=== PATIENT | female | born 1955 | race Caucasian/White ===

== ENCOUNTER → 2017-04-03 | Outpatient (CLI) | payer OTHER ==
--- NOTE | 2017-04-03 13:03 | DIAGNOSTIC IMAGING REPORT ---
LEFT KNEE 2 VIEWS HISTORY: SPRAIN OF UNSPECIFIED SITE ON LEFT KNEE COMPARISON: None. FINDINGS: There is no fracture or dislocation. No significant knee effusion. Mild tricompartmental osteoarthritis. No radiopaque foreign bodies. IMPRESSION: Mild osteoarthritis within the left knee. No fractures. Electronically signed by: Nikunj Nathan M.D. 04/03/2017 1:01 PM Dictated Date/Time: 04/03/2017 1:01 PM
== END | disposition home or self-care (01) ==
LOC: C.RAD1850 11:42
PROVIDERS: ATTEND Nurse Practitioner Family
DX: S83.92XA Sprain of unspecified site of left knee, initial encounter (principal); M17.12 Unilateral primary osteoarthritis, left knee; X50.1XXA Overexertion from prolonged static or awkward postures, initial encounter

== ENCOUNTER 2020-07-12 16:33 | Observation (INO) ==
[2020-07-12] MEDS ORDERED: SODIUM CHLORIDE 0.9% 1000ML 1,000 ML IV STA (16:58)
[2020-07-12] MEDS ORDERED: ONDANSETRON INJ 2 MG/ML 2 ML VIAL IV STA (17:09)
[2020-07-12] MEDS ORDERED: MoRPHine SULFATE 4 MG/ML 1 ML CARP\\VIAL IV STA (17:09)
--- NOTE | 2020-07-12 17:19 | Emergency Department Note ---
Impression & Plan Acute epigastric pain, Nausea, Acute thoracic back pain, Biliary colic ED Provider Note Provider: Heriberto Figueroa MD DATE OF SERVICE: 07/12/2020 CHIEF COMPLAINT: Chest and back pain/upper abdominal pain HISTORY OF PRESENT ILLNESS: Patient is a 65-year-old female history of hyperlipidemia but not currently medication present here today onset this morning she woke up with a little bit of lower mid chest discomfort straight radiating through to her mid thoracic back. States she ate breakfast and tried moving different positions and took some aspirin but it did not change things. Patient hospital bed around in a bandlike fashion to the upper abdomen. Reports a little bit of nausea and does not really have much of an appetite and did not eat lunch. Denies any dizziness or headache. Denies fever, chills, cough, or sore throat. Denies shortness of breath. Patient states she had a similar episode about a month ago lasted an hour or so she took some aspirin and took a nap and when she woke up it was gone. No other incidents. Denies any other radiation of the pain to the lower abdomen arms jaw neck or into the legs. Denies any leg swelling. Denies any trauma. Denies significant cardiac history. Patient states her blood pressure is usually well controlled. Describes a 10 out of 10 pain currently. Tight pressure sensation reported. REVIEW OF SYSTEMS: A total of 10 review of systems was obtained and negative except as stated above in the HPI. PAST MEDICAL HISTORY: As noted above and prior and appendectomy MEDICATIONS: Vitamin D SOCIAL HISTORY: Non-smoker, lives at home PHYSICAL EXAM: GENERAL: alert and oriented in no acute distress on stretcher Head: normocephalic and atraumatic EYES: No injection, discharge or icterus. NECK: Trachea midline. LUNGS: Airway patent. No retractions. Breath sounds clear with good air entry bilaterally. HEART: Regular rate and rhythm. No chest wall tenderness ABDOMEN: Soft some slight epigastric to right upper quadrant tenderness. Negative Melton's sign. No peritonitis. No lower abdominal tenderness. BACK: No midline tenderness, No bilateral flank tenderness. SKIN: Acyanotic, warm, dry, without rashes EXTREMITIES: Without swelling, tenderness or deformity NEUROLOGICAL: No focal deficits. No aphasia. No facial droop or slurred speech. Normal strength and tone in the extremities. Sensation to gross touch normal. Ambulatory. EK bpm normal sinus rhythm. No PVC or PAC. No acute ST segment elevation or depression. Normal QTC. CONTINUOUS CARDIAC MONITORING: was ordered and showed a heart rate of 60s and 70s bpm in normal sinus rhythm PDMP was checked without noted issue. Patient's laboratory studies and imaging reviewed. Differential includes cardiac, pulmonary, infections, diverticulitis, UTI, obstruction, mesenteric ischemia, aortic pathology, inflammatory bowel disease, renal colic, PUD, pancreatitis, biliary pathology, hernia, volvulus, constipation, as well as other pathologies. IMPRESSION/MEDICAL DECISION MAKING: Patient presents with onset this morning of mid thoracic back and slight lower chest discomfort. Denies exertional component. Some no radiation of the upper abdomen. Little bit of nausea. Lower suspicion for PE but question possible dissection or biliary pathology. Pancreatitis is high in the list. EKG was complete as well as troponin look for possible cardiac insult. Patient significantly hypertensive here. Unsure how much of this is related to pain versus other cause. Given some morphine, IV fluids, and Zofran here initially to help with symptom control. Patient is not guarding or having peritonitis. Negative Melton sign. No lower abdominal pain and prior appendectomy. EKG here is unimpressive for acute ischemic changes. No evidence of leukocytosis or anemia. No significant electrolyte abnormalities signs of renal dysfunction. No evidence of transaminitis. No significant lipase elevation indicative of pancreatitis. Bilirubin not elevated. Troponin is undetectable and again symptoms been ongoing for several hours today. CT of the chest and abdomen pelvis per radiology no evidence acute aortic dissection. No evidence of PE. No evidence of airspace consolidation or pleural effusion. 3.3 cm left ovarian cyst noted as well as an indeterminate 1.7 mm right upper retroperitoneal nodule questioning from the liver. Patient made aware of both in recommend she follow-up in the outpatient setting for further evaluation of both of these. CT scan shows a distended gallbladder with some mild stranding around the neck. On reevaluation the patient blood pressure is much improved. Nausea is resolved. Describes a 3 out of 10 pain in the mid back and epigastrium to right upper quadrant range in the abdomen. Having minimal to no significant abdominal tenderness at this point. Again no evidence of biliary obstruction based on labs the question biliary colic here. Did reach out to the surgery team to discuss the case. The general surgery physician speech and language assistant evaluated in ER discussed the case with Dr. Ibanez. Patient and decision-making with them will be brought in the hospital further observation and plan for cholecystectomy in the morning. DIAGNOSIS: Biliary colic, epigastric pain, nausea, acute thoracic back pain DISPOSITION: Admitted to the general surgery team. Past Med/Surg History Medical History Hyperlipidemia no meds Stress incontinence Vaginal polyp Surgical History H/O tubal ligation History of appendectomy History of colonoscopy Hx of section x2 S/P wisdom tooth extraction HX Family History Father Lung cancer Lung disease Sister Ovarian cancer dx in 50's Other No family history of adverse response to anesthesia Denies family history of Breast cancer Colorectal cancer Uterine cancer Social History Smoking Status: Never smoker Second Hand Exposure: Yes (as a child); Hx Alcohol Use: Yes Alcohol type: beer and wine Hx Substance Use: No Preferred Language: French Communication Ability: Effective Corporate Quality Assurance Manager Required: No Beliefs That Will Affect Care: None Current Living Situation: Alone Feels Safe at Home: Yes Assistive Devices: Contacts Allergies Allergies Allergy/AdvReac Type Severity Reaction Status Date / Time No Known Allergies Allergy Verified 07/12/20 16:53 Home Meds Home Medications Medication Instructions Recorded Confirmed aspirin 650 mg PO Q6H PRN 07/12/20 07/12/20 ibuprofen 400 mg PO Q6H PRN 07/12/20 07/12/20 Results & Data (ED) Vital Signs Vital Signs - 24 hr 07/12/20 16:45 07/12/20 17:34 Temperature 36.6 C Temperature Source Temporal Artery Scan Pulse Rate 70 Pulse Rhythm Regular Respiratory Rate 18 Respiratory Effort / Characteristics Non-Labored Spontaneous Respiratory Depth Normal Respiratory Pattern Regular Blood Pressure 174/100 H Blood Pressure Mean 124 Pulse Oximetry 99 99 Oxygen Delivery Method Room Air Room Air Sepsis Recent Fever Within 48 Hours No Sepsis New/Unexplained Change in Mental Status No Sepsis Action Taken by Nursing No Action Required Laboratory Data Result diagrams: 07/12/20 17:23 07/12/20 17:23 Lab Results 05/30/21 05/30/21 05/30/21 Range/Units 17:23 17:23 17:23 WBC 7.04 (4.8-10.8) K/uL RBC 4.85 (4.2-5.4) M/uL Hgb 15.2 (12.0-16.0) g/dL POC Hgb (12.0-16.0) g/dl Hct 45.0 (37-47) % POC Hct (37-47) % MCV 92.8 (80-100) fL MCH 31.3 (25-34) pg MCHC 33.8 (32-36) g/dL RDW Std Deviation 45.9 (36.4-46.3) fL RDW Coeff of Modesta 13.6 (11.5-14.5) % Plt Count 243 (130-400) K/uL MPV 10.6 H (7.4-10.4) fL Immature Gran % (Auto) 0.1 % Neut % (Auto) 52.5 % Lymph % (Auto) 31.7 % Ritchie % (Auto) 10.7 % Eos % (Auto) 4.7 % Baso % (Auto) 0.3 % Neut # (Auto) 3.70 (1.4-6.5) K/uL Lymph # (Auto) 2.23 (1.2-3.4) K/uL Ritchie # (Auto) 0.75 H (0.11-0.59) K/uL Eos # (Auto) 0.33 (0-0.5) K/uL Baso # (Auto) 0.02 (0-0.2) K/uL Immature Gran # (Auto) 0.01 (0.00-0.02) K/uL PT 10.3 (9.0-12.0) Seconds INR 1.0 (0.9-1.1) POC Sodium (135-144) mmol/L Sodium 142 (136-145) mmol/L POC Potassium (3.3-5.0) mmol/L Potassium 4.1 (3.5-5.1) mmol/L POC Chloride (101-112) mmol/L Chloride 108 H (98-107) mmol/L Carbon Dioxide 29 (21-32) mmol/L POC Total CO2 (24-31) mmol/L Anion Gap 5.0 (3-11) POC Anion Gap (16-25) mmol/L POC BUN (7-18) mg/dl BUN 17 (7-18) mg/dl Creatinine 0.99 (0.6-1.2) mg/dl POC Creatinine (0.6-1.3) mg/dl Est Cr Clr Drug Dosing 69.4 ml/min Est GFR ( Amer) 69.3 ml/min Est GFR (Non-Af Amer) 59.8 ml/min BUN/Creatinine Ratio 17.1 (10-20) Glucose 94 (70-99) mg/dl POC Glucose (other) (70-99) mg/dl Calcium 8.6 (8.5-10.1) mg/dl POC Ioniz Calcium Charbel (1.12-1.32) mmol/l Total Bilirubin 0.5 (0.2-1) mg/dl AST 14 L (15-37) U/L ALT 32 (12-78) U/L Alkaline Phosphatase 64 (45-117) U/L Troponin I < 0.015 (0-0.045) ng/ml Total Protein 6.7 (6.4-8.2) gm/dl Albumin 3.6 (3.4-5.0) gm/dl Globulin 3.1 (2.5-4.0) gm/dl Albumin/Globulin Ratio 1.2 (0.9-2) Lipase 181 (73-393) U/L COVID-19 Eval Order SARS-CoV-2 (PCR) (Negative) 07/12/20 07/12/20 07/12/20 Range/Units 17:25 17:25 17:51 WBC (4.8-10.8) K/uL RBC (4.2-5.4) M/uL Hgb (12.0-16.0) g/dL POC Hgb 14.3 (12.0-16.0) g/dl Hct (37-47) % POC Hct 42 (37-47) % MCV (80-100) fL MCH (25-34) pg MCHC (32-36) g/dL RDW Std Deviation (36.4-46.3) fL RDW Coeff of Modesta (11.5-14.5) % Plt Count (130-400) K/uL MPV (7.4-10.4) fL Immature Gran % (Auto) % Neut % (Auto) % Lymph % (Auto) % Ritchie % (Auto) % Eos % (Auto) % Baso % (Auto) % Neut # (Auto) (1.4-6.5) K/uL Lymph # (Auto) (1.2-3.4) K/uL Ritchie # (Auto) (0.11-0.59) K/uL Eos # (Auto) (0-0.5) K/uL Baso # (Auto) (0-0.2) K/uL Immature Gran # (Auto) (0.00-0.02) K/uL PT (9.0-12.0) Seconds INR (0.9-1.1) POC Sodium 141 (135-144) mmol/L Sodium (136-145) mmol/L POC Potassium 4.1 (3.3-5.0) mmol/L Potassium (3.5-5.1) mmol/L POC Chloride 104 (101-112) mmol/L Chloride (98-107) mmol/L Carbon Dioxide (21-32) mmol/L POC Total CO2 28 (24-31) mmol/L Anion Gap (3-11) POC Anion Gap 14.0 L (16-25) mmol/L POC BUN 21 H (7-18) mg/dl BUN (7-18) mg/dl Creatinine (0.6-1.2) mg/dl POC Creatinine 1.1 (0.6-1.3) mg/dl Est Cr Clr Drug Dosing ml/min Est GFR ( Amer) ml/min Est GFR (Non-Af Amer) ml/min BUN/Creatinine Ratio (10-20) Glucose (70-99) mg/dl POC Glucose (other) 96 (70-99) mg/dl Calcium (8.5-10.1) mg/dl POC Ioniz Calcium Charbel 1.20 (1.12-1.32) mmol/l Total Bilirubin (0.2-1) mg/dl AST (15-37) U/L ALT (12-78) U/L Alkaline Phosphatase (45-117) U/L Troponin I (0-0.045) ng/ml Total Protein (6.4-8.2) gm/dl Albumin (3.4-5.0) gm/dl Globulin (2.5-4.0) gm/dl Albumin/Globulin Ratio (0.9-2) Lipase (73-393) U/L COVID-19 Eval Order Covid19 at [facility] SARS-CoV-2 (PCR) NEGATIVE (Negative) Administered Medications Discontinued Medications Sodium Chloride (Nss 1000ml) 1,000 mls @ 999 mls/hr IV .Q1H1M STA Stop: 07/12/20 17:58 Last Infusion: 07/12/20 18:23 Dose: 0 mls/hr Documented by: [id number] Admin: 07/12/20 17:20 Dose: 999 mls/hr Documented by: [id number] Ioversol (Optiray 350 500ml) 118 ml IV ONCE ONE Stop: 07/12/20 18:24 Last Admin: 07/12/20 18:23 Dose: 118 ml Documented by: [id number] Morphine Sulfate (Morphine Sulfate 4 Mg/Ml 1 Ml Carp\Vial) 4 mg IV NOW STA Stop: 07/12/20 17:10 Last Admin: 07/12/20 17:37 Dose: 4 mg Documented by: [id number] Ondansetron HCl (Ondansetron Inj 2 Mg/Ml 2 Ml Vial) 4 mg IV NOW STA Stop: 07/12/20 17:10 Last Admin: 07/12/20 17:37 Dose: 4 mg Documented by: [id number] Imaging Data Radiologist's Impression: Chest CTA 07/12/20 16:58 CT ANGIOGRAM OF THE CHEST COMBO; CT ANGIOGRAM OF THE ABDOMEN AND PELVIS CLINICAL HISTORY: Atypical chest pain radiating to the back. Epigastric abdominal pain. COMPARISON STUDY: Abdominal ultrasound dated 06/12/2015. TECHNIQUE: Unenhanced CT scan of the chest is performed. Subsequently, following the IV administration of 118 cc of Optiray 350, CT angiogram of the chest, abdomen, and pelvis was performed from the thoracic inlet to the proximal femora. Images are reviewed in the axial, sagittal, and coronal planes. 3-D MIPS images are created and assessed. IV contrast was administered without com plication. A dose lowering technique was utilized adhering to the principles of ALARA. CT DOSE: 2773.17 mGy.cm FINDINGS: CHEST: Thyroid: Imaged portions of the thyroid gland are normal in size and attenuation. Thoracic aorta: No intramural hematoma is seen on the unenhanced series. The thoracic aorta is normal in course and caliber. The aortic arch demonstrates 4-vessel variant anatomy. No dissection is seen. The arch vessels are widely patent. Pulmonary vasculature: The pulmonary trunk is normal in caliber. There are no filling defects within the main, lobar, or segmental pulmonary branches to indicate pulmonary embolus. Heart: The heart is normal in size and without pericardial effusion. There are coronary artery calcifications. Lungs and pleural spaces: The lungs and pleural spaces are clear noting bibasilar scarring/atelectasis. The trachea and central airways are patent. Mediastinum: There is no mediastinal lymphadenopathy. Karlee: Clear. Axillae: There is no axillary lymphadenopathy. Bony thorax: The skeletal structures are osteopenic. No destructive bony lesions are identified. ABDOMEN AND PELVIS: Liver: The contrast-enhanced liver is normal in size, contour, and attenuation. There is no intrahepatic biliary ductal dilatation. The main portal veins appear patent. Gallbladder: The gallbladder is distended. Mild stranding is seen adjacent to the gallbladder neck. No surrounding fluid is identified. Spleen: Normal in size and attenuation noting heterogeneous arterial phase enhancement. Pancreas: Unremarkable. Adrenal glands: Unremarkable. Kidneys: The contrast enhanced kidneys are normal in size and without hydronephrosis. The kidneys enhance symmetrically. Abdominal aorta and iliac arteries: The abdominal aorta is normal in course and caliber. No dissection is seen. The iliac arteries are widely patent bilaterally. Major branches of the abdominal aorta: The celiac trunk, superior mesenteric, and inferior mesenteric arteries are widely patent. Hepatic arterial anatomy is conventional. The splenic artery is patent.Single bilateral renal arteries are widely patent. Bowel: There is mild colonic diverticulosis without CT evidence of acute diverticulitis. No bowel obstruction is seen. The appendix is not identified and reported surgically absent. Peritoneum/retroperitoneum: There is no intraperitoneal free air or abdominal ascites. There is an indeterminant 1.7 cm soft tissue nodule identified in the right superior retroperitoneal space below the diaphragm and adjacent to the liver seen on image #136. This appears to arise from the liver on the coronal reformats and may represent an exophytic nodule of hepatic tissue. Lymphadenopathy: None. Pelvic viscera: The bladder and uterus are normal as visualized. The ovaries appear enlarged for age, with a 3.3 cm cystic structure identified in the left ovary as seen on image #326. Skeletal structures: The skeletal structures are osteopenic. There is mild lumbosacral spondylosis. Sclerotic change is noted in the pubic symphysis. No lytic or blastic lesions are seen. IMPRESSION: 1. The gallbladder is distended and there is mild stranding adjacent to the gallbladder neck. Correlate clinically and with laboratory studies for evidence of acute cholecystitis. Consider right upper quadrant ultrasound for further assessment. 2. Unremarkable CT angiogram of the thoracic and abdominal aorta. 3. There is no evidence of pulmonary embolus in the main, lobar, or segmental pulmonary arteries.. 4. Unremarkable CT angiogram of the major branches of the abdominal aorta. 5. There is no airspace consolidation or pleural effusion. 6. The ovaries are enlarged bilaterally, with a 3.3 cm simple appearing cystic structure identified in the left ovary. Nonemergent pelvic ultrasound and outpatient gynecology follow-up are recommended. 7. There is an indeterminant 1.7 cm nodule identified in the right upper retroperitoneal space which may arise from the right lobe of liver. This is pathologically indeterminant, and a 6 month follow-up contrast-enhanced abdominal CT scan is recommended for reassessment. 8. Colonic diverticulosis without CT evidence of acute diverticulitis. 9. Additional findings as above. ACT 112: Positive. There are findings on this exam that require communication between the performing entity and the patient following Patient Test Result Information Act ([place] Act 112) guidelines. Electronically signed by: Elier Gonzales M.D. 07/12/2020 6:49 PM Abdomen/Pelvis CTA 07/12/20 17:08 CT ANGIOGRAM OF THE CHEST COMBO; CT ANGIOGRAM OF THE ABDOMEN AND PELVIS CLINICAL HISTORY: Atypical chest pain radiating to the back. Epigastric abdo carlos pain. COMPARISON STUDY: Abdominal ultrasound dated 06/12/2015. TECHNIQUE: Unenhanced CT scan of the chest is performed. Subsequently, following the IV administration of 118 cc of Optiray 350, CT angiogram of the chest, abdomen, and pelvis was performed from the thoracic inlet to the proximal femora. Images are reviewed in the axial, sagittal, and coronal planes. 3-D MIPS images are created and assessed. IV contrast was administered without complication. A dose lowering technique was utilized adhering to the principles of ALARA. CT DOSE: 2773.17 mGy.cm FINDINGS: CHEST: Thyroid: Imaged portions of the thyroid gland are normal in size and attenuation. Thoracic aorta: No intramural hematoma is seen on the unenhanced series. The thoracic aorta is normal in course and caliber. The aortic arch demonstrates 4- vessel variant anatomy. No dissection is seen. The arch vessels are widely patent. Pulmonary vasculature: The pulmonary trunk is normal in caliber. There are no filling defects within the main, lobar, or segmental pulmonary branches to indicate pulmonary embolus. Heart: The heart is normal in size and without pericardial effusion. There are coronary artery calcifications. Lungs and pleural spaces: The lungs and pleural spaces are clear noting bibasilar scarring/atelectasis. The trachea and central airways are patent. Mediastinum: There is no mediastinal lymphadenopathy. Karlee: Clear. Axillae: There is no axillary lymphadenopathy. Bony thorax: The skeletal structures are osteopenic. No destructive bony lesions are identified. ABDOMEN AND PELVIS: Liver: The contrast-enhanced liver is normal in size, contour, and attenuation. There is no intrahepatic biliary ductal dilatation. The main portal veins appear patent. Gallbladder: The gallbladder is distended. Mild stranding is seen adjacent to the gallbladder neck. No surrounding fluid is identified. Spleen: Normal in size and attenuation noting heterogeneous arterial phase enhancement. Pancreas: Unremarkable. Adrenal glands: Unremarkable. Kidneys: The contrast enhanced kidneys are normal in size and without hydronephrosis. The kidneys enhance symmetrically. Abdominal aorta and iliac arteries: The abdominal aorta is normal in course and caliber. No dissection is seen. The iliac arteries are widely patent bilaterally. Major branches of the abdominal aorta: The celiac trunk, superior mesenteric, and inferior mesenteric arteries are widely patent. Hepatic arterial anatomy is conventional. The splenic artery is patent.Single bilateral renal arteries are widely patent. Bowel: There is mild colonic diverticulosis without CT evidence of acute diverticulitis. No bowel obstruction is seen. The appendix is not identified and reported surgically absent. Peritoneum/retroperitoneum: There is no intraperitoneal free air or abdominal ascites. There is an indeterminant 1.7 cm soft tissue nodule identified in the right superior retroperitoneal space below the diaphragm and adjacent to the liver seen on image #136. This appears to arise from the liver on the coronal reformats and may represent an exophytic nodule of hepatic tissue. Lymphadenopathy: None. Pelvic viscera: The bladder and uterus are normal as visualized. The ovaries appear enlarged for age, with a 3.3 cm cystic structure identified in the left ovary as seen on image #326. Skeletal structures: The skeletal structures are osteopenic. There is mild lumbosacral spondylosis. Sclerotic change is noted in the pubic symphysis. No lytic or blastic lesions are seen. IMPRESSION: 1. The gallbladder is distended and there is mild stranding adjacent to the gallbladder neck. Correlate clinically and with laboratory studies for evidence of acute cholecystitis. Consider right upper quadrant ultrasound for further assessment. 2. Unremarkable CT angiogram of the thoracic and abdominal aorta. 3. There is no evidence of pulmonary embolus in the main, lobar, or segmental pulmonary arteries.. 4. Unremarkable CT angiogram of the major branches of the abdominal aorta. 5. There is no airspace consolidation or pleural effusion. 6. The ovaries are enlarged bilaterally, with a 3.3 cm simple appearing cystic structure identified in the left ovary. Nonemergent pelvic ultrasound and outpatient gynecology follow-up are recommended. 7. There is an indeterminant 1.7 cm nodule identified in the right upper retroperitoneal space which may arise from the right lobe of liver. This is pathologically indeterminant, and a 6 month follow-up contrast-enhanced abdominal CT scan is recommended for reassessment. 8. Colonic diverticulosis without CT evidence of acute diverticulitis. 9. Additional findings as above. ACT 112: Positive. There are findings on this exam that require communication between the performing entity and the patient following Patient Test Result Information Act ([place] Act 112) guidelines. Electronically signed by: Elier Gonzales M.D. 07/12/2020 6:49 PM Discharge Plan Visit Data Chief Complaint: Back Injury/Pain Stated Complaint: [facility] Provider: Heriberto Figueroa Discharge Problem: Acute epigastric pain, Nausea, Acute thoracic back pain, Biliary colic Patient Disposition: Being Evaluated by Surgeon Condition: Good Forms Stand Alone Forms: [employer] Prescriptions Prescriptions: No Action aspirin 325 mg Tablet 650 mg PO Q6H PRN (Reason: Pain) RF: 0 ibuprofen 200 mg Tablet 400 mg PO Q6H PRN (Reason: Pain) RF: 0 Referrals Referrals: Keila Rm CRNP [Primary Care Provider] -
[2020-07-12 17:49] LABS: Basophils # (auto) 0.02 K/uL (0-0.2); Basophils % (auto) 0.3 %; Eosinophils # (auto) 0.33 K/uL (0-0.5); Eosinophils % (auto) 4.7 %; Hemoglobin 15.2 g/dL (12.0-16.0); Immature Granulocytes # (auto) 0.01 K/uL (0.00-0.02); Immature Granulocytes % (auto) 0.1 %; Lymphocytes # (auto) 2.23 K/uL (1.2-3.4); Lymphocytes % (auto) 31.7 %; Mean Corpuscular Hemoglobin 31.3 pg (25-34); Mean Corpuscular Hgb Conc 33.8 g/dL (32-36); Mean Corpuscular Volume 92.8 fL (80-100); Mean Platelet Volume 10.6 fL (7.4-10.4); Monocytes # (auto) 0.75 K/uL (0.11-0.59); Monocytes % (auto) 10.7 %; Neutrophils % (auto) 52.5 %; Platelet Count 243 K/uL (130-400); RDW Coefficient of Variation 13.6 % (11.5-14.5); RDW Standard Deviation 45.9 fL (36.4-46.3); Red Blood Count 4.85 M/uL (4.2-5.4); White Blood Count 7.04 K/uL (4.8-10.8)
[2020-07-12 18:03] LABS: Prothrombin Time 10.3 Seconds (9.0-12.0)
[2020-07-12 18:04] LABS: iSTAT Creatinine 1.1 mg/dl (0.6-1.3); iSTAT Hemoglobin 14.3 g/dl (12.0-16.0); iSTAT Ionized Calcium 1.2 mmol/l (1.12-1.32); iSTAT Potassium 4.1 mmol/L (3.3-5.0)
[2020-07-12 18:07] LABS: Alanine Aminotransferase 32 U/L (12-78); Albumin Level 3.6 gm/dl (3.4-5.0); Aspartate Aminotransferase 14 U/L (15-37); BUN Creatinine Ratio 17.1 (10-20); Blood Urea Nitrogen 17 mg/dl (7-18); Calcium 8.6 mg/dl (8.5-10.1); Carbon Dioxide 29 mmol/L (21-32); Chloride 108 mmol/L (98-107); Creatinine Clr Calc Pharmacy 69.4 ml/min; Est GFR (African American) 69.3 ml/min; Est GFR (Non-African American) 59.8 ml/min; Glucose 94 mg/dl (70-99); Lipase 181 U/L (73-393); Potassium 4.1 mmol/L (3.5-5.1); Sodium 142 mmol/L (136-145)
[2020-07-12 18:13] LABS: Albumin Globulin Ratio 1.2 (0.9-2); Alkaline Phosphatase 64 U/L (45-117); Bilirubin,Total 0.5 mg/dl (0.2-1); Globulin 3.1 gm/dl (2.5-4.0); Total Protein 6.7 gm/dl (6.4-8.2); Troponin I < 0.015 ng/ml (0-0.045)
[2020-07-12] MEDS ORDERED: OPTIRAY 350 500ml IV ONE (18:23)
--- NOTE | 2020-07-12 18:51 | CT Scan Report ---
CT ANGIOGRAM OF THE CHEST COMBO; CT ANGIOGRAM OF THE ABDOMEN AND PELVIS CLINICAL HISTORY: Atypical chest pain radiating to the back. Epigastric abdominal pain. COMPARISON STUDY: Abdominal ultrasound dated 06/12/2015. TECHNIQUE: Unenhanced CT scan of the chest is performed. Subsequently, following the IV administratio n of 118 cc of Optiray 350, CT angiogram of the chest, abdomen, and pelvis was performed from the tho racic inlet to the proximal femora. Images are reviewed in the axial, sagittal, and coronal planes. 3 -D MIPS images are created and assessed. IV contrast was administered without complication. A dose lo wering technique was utilized adhering to the principles of ALARA. CT DOSE: 2773.17 mGy.cm FINDINGS: CHEST: Thyroid: Imaged portions of the thyroid gland are normal in size and attenuation. Thoracic aorta: No intramural hematoma is seen on the unenhanced series. The thoracic aorta is normal in course and caliber. The aortic arch demonstrates 4-vessel variant anatomy. No dissection is seen. The arch vessels are widely patent. Pulmonary vasculature: The pulmonary trunk is normal in caliber. There are no filling defects within the main, lobar, or segmental pulmonary branches to indicate pulmonary embolus. Heart: The heart is normal in size and without pericardial effusion. There are coronary artery calcif ications. Lungs and pleural spaces: The lungs and pleural spaces are clear noting bibasilar scarring/atelectasi s. The trachea and central airways are patent. Mediastinum: There is no mediastinal lymphadenopathy. Karlee: Clear. Axillae: There is no axillary lymphadenopathy. Bony thorax: The skeletal structures are osteopenic. No destructive bony lesions are identified. ABDOMEN AND PELVIS: Liver: The contrast-enhanced liver is normal in size, contour, and attenuation. There is no intrahepa tic biliary ductal dilatation. The main portal veins appear patent. Gallbladder: The gallbladder is distended. Mild stranding is seen adjacent to the gallbladder neck. N o surrounding fluid is identified. Spleen: Normal in size and attenuation noting heterogeneous arterial phase enhancement. Pancreas: Unremarkable. Adrenal glands: Unremarkable. Kidneys: The contrast enhanced kidneys are normal in size and without hydronephrosis. The kidneys enh ance symmetrically. Abdominal aorta and iliac arteries: The abdominal aorta is normal in course and caliber. No dissectio n is seen. The iliac arteries are widely patent bilaterally. Major branches of the abdominal aorta: The celiac trunk, superior mesenteric, and inferior mesenteric arteries are widely patent. Hepatic arterial anatomy is conventional. The splenic artery is patent.S franca bilateral renal arteries are widely patent. Bowel: There is mild colonic diverticulosis without CT evidence of acute diverticulitis. No bowel obs truction is seen. The appendix is not identified and reported surgically absent. Peritoneum/retroperitoneum: There is no intraperitoneal free air or abdominal ascites. There is an in determinant 1.7 cm soft tissue nodule identified in the right superior retroperitoneal space below th e diaphragm and adjacent to the liver seen on image #136. This appears to arise from the liver on the coronal reformats and may represent an exophytic nodule of hepatic tissue. Lymphadenopathy: None. Pelvic viscera: The bladder and uterus are normal as visualized. The ovaries appear enlarged for age, with a 3.3 cm cystic structure identified in the left ovary as seen on image #326. Skeletal structures: The skeletal structures are osteopenic. There is mild lumbosacral spondylosis. S clerotic change is noted in the pubic symphysis. No lytic or blastic lesions are seen. IMPRESSION: 1. The gallbladder is distended and there is mild stranding adjacent to the gallbladder neck. Correla te clinically and with laboratory studies for evidence of acute cholecystitis. Consider right upper q uadrant ultrasound for further assessment. 2. Unremarkable CT angiogram of the thoracic and abdominal aorta. 3. There is no evidence of pulmonary embolus in the main, lobar, or segmental pulmonary arteries.. 4. Unremarkable CT angiogram of the major branches of the abdominal aorta. 5. There is no airspace consolidation or pleural effusion. 6. The ovaries are enlarged bilaterally, with a 3.3 cm simple appearing cystic structure identified i n the left ovary. Nonemergent pelvic ultrasound and outpatient gynecology follow-up are recommended. 7. There is an indeterminant 1.7 cm nodule identified in the right upper retroperitoneal space which may arise from the right lobe of liver. This is pathologically indeterminant, and a 6 month follow-up contrast-enhanced abdominal CT scan is recommended for reassessment. 8. Colonic diverticulosis without CT evidence of acute diverticulitis. 9. Additional findings as above. ACT 112: Positive. There are findings on this exam that require communication between the performing entity and the patient following Patient Test Result Information Act ([place] Act 112) guidelines. Electronically signed by: Elier Gonzales M.D. 07/12/2020 6:49 PM
--- NOTE | 2020-07-12 20:10 | History & Physical Report ---
Date of Service July 12, 2020 Assessment & Plan (1) Biliary colic: Patient will be admitted to the hospital and we'll proceed as follows: Provide analgesics Provide antiemetics Provide antibiotics. As the patient has no allergies I'll use cefoxitin We will allow the patient clear liquids until midnight at which time she'll be n.p.o. except for medicines. We'll provide IV fluid for gentle hydration We'll repeat labs in the morning I discussed with the patient that we can proceed with cholecystectomy tomorrow and she is willing to proceed in this manner. I have discussed the procedure outlining the risks, benefits, and alternatives. Informed consent has been obtained and is placed on the chart. Patient will meet Dr. Ibanez prior to undergoing surgery. As surgery is planned for tomorrow use SCDs for DVT prevention we avoid chemical means until after surgery History of Present Illness Chief Complaint: Abdominal pain Primary Care Provider: MARY KAY Fonseca This is a 65-year-old female who presented to [facility] emergency department secondary to back pain. Patient states that she woke up this morning and had pain in her mid to low back region in the center of her back. He says initially it felt like an ache but got worse throughout the day. Patient initially thought that this was a muscle ache and she reports having similar issues approximately 1 month ago. In addition to this back pain the patient does admit to some pain in her upper abdomen in the epigastric area. She has no nausea or vomiting. She denies any fevers or diarrhea. Patient denies any postprandial pain. She denies any radiation of the pain to her shoulder. She said that the pain was improved with medicines administered in the emergency department and she denies any provocative factors. Concerning prior surgeries on her abdomen the patient notes that she has had 2 C-sections. She does add that during her second she also underwent a tubal ligation and appendectomy. In the emergency department patient did have labs where her CBC revealed her white blood cell count, hemoglobin, hematocrit, and platelet count are all within normal range. Chemistry profile revealed that her sodium, potassium, BUN, and creatinine were all within normal range. There were no elevation of her LFTs and her lipase was normal. A Covid test has been checked and is noted to be negative. Patient did have a CT scan of her chest abdomen and pelvis that showed no evidence of pulmonary emboli. Patient was noted to have a distended gallbl adder with some mild stranding adjacent to the gallbladder neck. I did question patient about her functional capacity and she notes that she walks nearly 1 mile every day and can do so without any chest pain or shortness of breath. She lives in a two-story home and says that she can negotiate steps without any chest pain or shortness of breath. He is a lifetime non-smoker and does not have any family history of coronary artery disease. In the emergency department she was resting comfortably in bed and her pain had improved with medicines that were administered. She is in no distress. Allergies Allergy/AdvReac Type Severity Reaction Status Date / Time No Known Allergies Allergy Verified 07/12/20 16:53 Home Medications Medication Instructions Recorded Confirmed Type aspirin 650 mg PO Q6H PRN 07/12/20 07/12/20 History ibuprofen 400 mg PO Q6H PRN 07/12/20 07/12/20 History Past Med/Surg History Medical History Hyperlipidemia no meds Stress incontinence Vaginal polyp Surgical History H/O tubal ligation History of appendectomy History of colonoscopy Hx of section x2 S/P wisdom tooth extraction HX Family History Father Lung cancer Lung disease Sister Ovarian cancer dx in 50's Other No family history of adverse response to anesthesia Denies family history of Breast cancer Colorectal cancer Uterine cancer Social History Smoking Status: Never smoker Second Hand Exposure: Yes (as a child); Hx Alcohol Use: Yes Alcohol type: beer and wine Hx Substance Use: No Preferred Language: [place] Communication Ability: Effective Sheriffs Required: No Beliefs That Will Affect Care: None Current Living Situation: Alone Other Information That Helps Us Care for You: No Feels Safe at Home: Yes Safety Concerns: Feels Safe At This Time Assistive Devices: None Review of Systems Constitutional: no fever and no chills Eyes: no diplopia Ear, Nose, Mouth, Throat: no ear pain Respiratory: no cough and no dyspnea Cardiovascular: no chest pain Gastrointestinal: + abdominal pain; no heartburn, no nausea, no vomiting, no constipation and no diarrhea/loose stools Genitourinary: no dysuria Musculoskeletal: + back pain Integumentary: no rash Neurologic: no localized weakness Physical Exam Constitutional: well developed and well nourished; no acute distress Eyes: no conjunctival abnormality ENMT: Ears: no hearing impairment Neck: trachea midline Respiratory: normal respiratory effort, lungs clear to auscultation Cardiovascular: Rate/Rhythm: regular rate and regular rhythm Gastrointestinal (Abdomen): Abdomen is rotund and soft. Bowel sounds are present. There is no rebound tenderness or guarding. With light palpation there is no pain. With very deep and forceful palpation patient did have some discomfort in the right upper quadrant and epigastric areas. Musculoskeletal: No calf tenderness. Straight leg raise did not elicit any back pain bilaterally. Skin: no rashes, warm and dry Neurologic: moves all extremities Psychiatric: A+Ox3, euthymic affect Results & Data Results & Data ([facility]) Vital Signs (Past 12 Hours) Vital Signs Temp Pulse Resp BP Pulse Ox 07/12/20 17:34 99 07/12/20 16:45 36.6 C 70 18 174/100 H 99 PG Care Time/CCT Total # of Minutes Spent Total Time Spent with Patient: Total time spent is greater than 50% in coordination of care (as documented) at patient's floor/unit and/or counseling patient: Coding Level of Care Code 34872 OBS Care - Level 3 Diagnoses Biliary colic K80.50
--- NOTE | 2020-07-12 21:06 | Hospitalist Consultation ---
Date of Consultation July 12, 2020 Assessment & Plan (1) Biliary colic: Patient is a very pleasant 65 year old female with PMHx of HLD who presented for worsening back pain and found on CT to have a distended gallbladder with mild stranding of the GB neck concerning for cholecystitis. Patient is planned for cholecystectomy tomorrow and medicine was consulted for hypertension management. Acute Cholecystitis -Analgesic and antiemetics per surgery -Agree with antibiotics, continue Cefoxitin -NPO after midnight -Continue IVF while NPO -Plan for surgical intervention for cholecystectomy in AM Hypertension -Initial consult for hypertension due to patient's BP of 174/100 -On repeat while in the room patients BP had reduced to 146/80 -No known history of hypertension outside of one other time prior to her vaginal polyp removal surgery -Suspect secondary to pain and increased sympathomimetics during acute infection -With HR in the 70's would hold on PRN beta armando pushes at this time -Will add Hydralazine pushes PRN for pressures >160 systolic Ovarian Cyst -Roughly 3.3 cm simple appearing cystic structure identified in the L ovary -Follow up outpatient OBGYN for nonemergent pelvic ultrasound Nodule of R upper retroperitoneal space -1.7cm nodule identified in the R upper retroperitoneal space which may arise from the right lobe of the liver -Pathologically indeterminant - 6 month follow up contrast-enhanced abdominal CT scan recommended for reassessment Dispo: Med/Surg FEN: NPO at midnight DVT: SCDs per surgery Code: Full, discussed with patient Thank you for allowing us to assist in the care of this patient. Medicine will continue to follow in the AM. (2) Acute epigastric pain: (3) Acute thoracic back pain: Supervising Physician Co-Signing Physician Notes Attending addendum: I have physically seen this patient, have supervised the medical residents activities, and agree with the H&P unless as otherwise noted. Assessment and Plan: Acute cholecystitis- Continue cefoxitin IV Continue IV fluids Admitted to surgery for cholecystectomy in a.m. Elevated blood pressure/no history of hypertension- Likely secondary to pain Hydralazine 10 mg IV every 6 hours as needed systolic blood pressure greater than 160 Ovarian cyst- We will need follow-up with outpatient BUSINESS OPERATIONS MANAGER Remaining orders and notations as noted History of Present Illness Reason for Consultation: Hypertension Requesting Physician: Dr. Ibanez History of Present Illness Patient is a very pleasant 65 year old female with PMHx of HLD who presented for worsening back pain and found on CT to have a distended gallbladder with mild stranding of the GB neck concerning for cholecystitis. Patient is planned for cholecystectomy tomorrow and medicine was consulted for hypertension management. Patient notes that she has had on and off back pain for at least the past month. She also notes occasional upper abdomen and epigastric pain, worse on the R side for this time. She states that she has been working on her diet, but yesterday ate a fairly unhealthy dinner of ice cream, pretzels, and cheese and found her pain to worsen today. She notes that she does walk nearly 1 mile daily and that she does so without needing to stop to catch her breath and does not develop chest pain. She is able to climb a flight of steps without issue in her own home. Currently she denies any fever, chills, SOB, chest pain, abdominal pain. Med Hx: HLD Surg Hx: Appendectomy, section x2 Soc Hx: No tobacco or illicit drug use. Has 3-4 glasses of wine/month Allergies Allergy/AdvReac Type Severity Reaction Status Date / Time No Known Allergies Allergy Verified 07/12/20 16:53 Home Medications Medication Instructions Recorded Confirmed Type aspirin 650 mg PO Q6H PRN 07/12/20 07/12/20 History ibuprofen 400 mg PO Q6H PRN 07/12/20 07/12/20 History Patient History Medical History (Updated 07/13/20 @ 12:24 by William Esparza MD) Hyperlipidemia no meds Obesity Stress incontinence Vaginal polyp Surgical History H/O tubal ligation History of appendectomy History of colonoscopy Hx of section x2 S/P wisdom tooth extraction HX Family History Father Lung cancer Lung disease Sister Ovarian cancer dx in 50's Other No family history of adverse response to anesthesia Denies family history of Breast cancer Colorectal cancer Uterine cancer Social History Smoking Status: Never smoker Second Hand Exposure: Yes (as a child); Hx Alcohol Use: Yes Alcohol type: beer and wine Hx Substance Use: No Preferred Language: Romanian Communication Ability: Effective 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 Beliefs That Will Affect Care: None Current Living Situation: Alone Other Information That Helps Us Care for You: No Feels Safe at Home: Yes Safety Concerns: Feels Safe At This Time Assistive Devices: None Review of Systems Review of Systems: All systems reviewed & are unremarkable except as noted in Subjective Physical Exam Constitutional: well developed and well nourished; no acute distress Eyes: no conjunctival abnormality ENMT: Ears: no hearing impairment Neck: trachea midline Respiratory: normal respiratory effort, lungs clear to auscultation Cardiovascular: Rate/Rhythm: regular rate and regular rhythm Heart Sounds: no gallop, no murmur and no cardiac rub Gastrointestinal (Abdomen): Inspection/Auscultation: abdomen normal to ins pection and normal bowel sounds; abdomen not distended Percussion/Palpation: + abdomen tender (to deep palpation of the RUQ ) and abdomen soft; no guarding Musculoskeletal: no cyanosis or clubbing, extremities motor strength 5/5 No calf tenderness. Straight leg raise did not elicit any back pain bilaterally. Skin: no rashes, warm and dry Neurologic: PERRL, EOMI, accommodation nl, no face palsy, no dysarthria moves all extremities Psychiatric: A+Ox3, euthymic affect Results & Data Results & Data ([facility]) Vital Signs (Past 12 Hours) Vital Signs Temp Pulse Resp BP Pulse Ox 07/12/20 17:34 99 07/12/20 16:45 36.6 C 70 18 174/100 H 99 Resident Activity Tracking Resident Involvement: Resident Care Provided Care Provided: Adult Hospital Medicine (1) Acute thoracic back pain Back pain laterality: midline Qualified Code(s): M54.6 - Pain in thoracic spine
[2020-07-12] MEDS ORDERED: hydrALAZINE HCL 20 MG/ML VIAL IV PRN (22:00)
[2020-07-12] MEDS ORDERED: MoRPHine SULFATE 2 MG/ML CARP IV PRN (22:00)
[2020-07-12] MEDS ORDERED: ONDANSETRON INJ 2 MG/ML 2 ML VIAL IV PRN (22:00)
[2020-07-12] MEDS ORDERED: ACETAMINOPHEN 1,000 MG/100 ML VIAL IV PRN (22:00)
[2020-07-12] MEDS: LACTATED RINGER'S 1,000 ML IV SCH (22:17)
[2020-07-12] MEDS: cefOXitin 2,000 MG in DEXTROSE 5% 50 ML IV SCH (22:17)
[2020-07-13] MEDS: cefOXitin 2,000 MG in DEXTROSE 5% 50 ML IV SCH ×4 (04:07→23:07)
--- NOTE | 2020-07-13 05:24 | Surgery Progress Note ---
Date of Service July 13, 2020 Assessment & Plan (1) Biliary colic: Patient has been admitted on the surgical service with care to continue as follows: Continue analgesics Continue antiemetics Continue antibiotics in the form of cefoxitin Continue IV fluid for hydration Repeat labs are ordered for this morning which are currently pending Continue n.p.o. status as cholecystectomy is tentatively planned for this morning Continue SCDs for DVT prevention. We will avoid chemical means due to anticipated surgery. Dr. Ibanez-patient with biliary colic-she has severe distention of her gallbladder and likely has sludge in her gallbladder Plan is for laparoscopic cholecystectomy later this morning-patient understands and agrees to plan Admission and Anticipated Discharge Date Admission Date: July 12, 2020 Subjective Patient notes a restful night. She denies any worsening abdominal pain. She has not had any recurrence of her back pain. She denies any fevers, shakes, chills. She denies any nausea or vomiting. Physical Exam Gastrointestinal (Abdomen): Abdomen is rotund with positive bowel sounds. There is no rebound tenderness or guarding or pain with palpation. Results & Data ([facility]) Vital Signs (Past 12 Hours) Vital Signs Temp Pulse Pulse Resp BP Pulse Ox 07/12/20 22:00 36.6 C 71 16 129/79 95 07/12/20 21:51 70 18 136/86 99 07/12/20 17:34 99 PG Care Time/CCT Total # of Minutes Spent Total Time Spent with Patient: Total time spent is greater than 50% in coordination of care (as documented) at patient's floor/unit and/or counseling patient: Coding Level of Care Code 99054 Subseq Hosp Care Lvl 1 Diagnoses Biliary colic K80.50
[2020-07-13 05:40] LABS: Basophils # (auto) 0.01 K/uL (0-0.2); Basophils % (auto) 0.1 %; Eosinophils # (auto) 0.25 K/uL (0-0.5); Eosinophils % (auto) 3.6 %; Hematocrit (blood only) 44.6 % (37-47); Hemoglobin 14.7 g/dL (12.0-16.0); Immature Granulocytes # (auto) 0.01 K/uL (0.00-0.02); Immature Granulocytes % (auto) 0.1 %; Lymphocytes # (auto) 2.77 K/uL (1.2-3.4); Lymphocytes % (auto) 39.3 %; Mean Corpuscular Hemoglobin 30.7 pg (25-34); Mean Corpuscular Volume 93.1 fL (80-100); Mean Platelet Volume 10.6 fL (7.4-10.4); Monocytes # (auto) 0.55 K/uL (0.11-0.59); Monocytes % (auto) 7.8 %; Neutrophils # (auto) 3.45 K/uL (1.4-6.5); Neutrophils % (auto) 49.1 %; Platelet Count 240 K/uL (130-400); RDW Coefficient of Variation 13.6 % (11.5-14.5); RDW Standard Deviation 46.4 fL (36.4-46.3); Red Blood Count 4.79 M/uL (4.2-5.4); White Blood Count 7.04 K/uL (4.8-10.8)
[2020-07-13 06:03] LABS: Albumin Globulin Ratio 1.1 (0.9-2); Albumin Level 3.3 gm/dl (3.4-5.0); BUN Creatinine Ratio 7.3 (10-20); Bilirubin,Total 0.5 mg/dl (0.2-1); Calcium 8.4 mg/dl (8.5-10.1); Creatinine Clr Calc Pharmacy 46.8 ml/min; Est GFR (Non-African American) 37.1 ml/min; Globulin 2.9 gm/dl (2.5-4.0); Potassium 3.5 mmol/L (3.5-5.1); Total Protein 6.2 gm/dl (6.4-8.2)
--- NOTE | 2020-07-13 09:27 | Hospitalist Consultation ---
Date of Consultation July 13, 2020 Assessment & Plan (1) Biliary colic: Patient is a very pleasant 65 year old female with PMHx of HLD who presented for worsening back pain and found on CT to have a distended gallbladder with mild stranding of the GB neck concerning for cholecystitis. Patient is planned for cholecystectomy tomorrow and medicine was consulted for hypertension management. Acute Cholecystitis -Analgesic and antiemetics per surgery -Continue abx per surgery Hypertension Initial consult for hypertension due to patient's BP of 174/100, On repeat while in the room patients BP had reduced to 146/80. No known history of hypertension outside of one other time prior to her vaginal polyp removal surgery. Suspect secondary to pain and increased sympathomimetics during acute infection ith HR in the 70's would hold on PRN beta armando pushes at this time -hydralazine pushes PRN for pressures >180 systolic Ovarian Cyst -Roughly 3.3 cm simple appearing cystic structure identified in the L ovary -Follow up outpatient OBGYN for nonemergent pelvic ultrasound Nodule of R upper retroperitoneal space -1.7cm nodule identified in the R upper retroperitoneal space which may arise from the right lobe of the liver -Pathologically indeterminant - 6 month follow up contrast-enhanced abdominal CT scan recommended for reassessment Dispo: Med/Surg FEN: NPO at midnight DVT: SCDs per surgery Code: Full, discussed with patient Thank you for allowing us to assist in the care of this patient. Medicine will continue to follow along. (2) Acute epigastric pain: (3) Acute thoracic back pain: Supervising Physician Co-Signing Physician Notes Resident Physician Supervision Note: I independently interviewed and examined the patient and verified the harris history and physical, reviewed labs and image studies and agree with resident Dr. Godinez findings and care plan. History of Present Illness Attending Physician: Nicola Ibanez MD, FACS Allergies Allergy/AdvReac Type Severity Reaction Status Date / Time No Known Allergies Allergy Verified 07/12/20 16:53 Home Medications Medication Instructions Recorded Confirmed Type aspirin 650 mg PO Q6H PRN 07/12/20 07/12/20 History ibuprofen 400 mg PO Q6H PRN 07/12/20 07/12/20 History Patient History Medical History (Updated 07/13/20 @ 12:24 by William Esparza MD) Hyperlipidemia no meds Obesity Stress incontinence Vaginal polyp Surgical History H/O tubal ligation History of appendectomy History of colonoscopy Hx of section x2 S/P wisdom tooth extraction HX Family History Father Lung cancer Lung disease Sister Ovarian cancer dx in 50's Other No family history of adverse response to anesthesia Denies family history of Breast cancer Colorectal cancer Uterine cancer Social History Smoking Status: Never smoker Second Hand Exposure: Yes (as a child); Hx Alcohol Use: Yes Alcohol type: beer and wine Hx Substance Use: No Preferred Language: Pakistani Communication Ability: Effective Salon Professional Required: No Beliefs That Will Affect Care: None Current Living Situation: Alone Other Information That Helps Us Care for You: No Feels Safe at Home: Yes Safety Concerns: Feels Safe At This Time Assistive Devices: None Physical Exam Physical Exam: General: No acute distress HEENT: Normocephalic atraumatic Neck: No significant lymphadenopathy, trachea midline, normal to visual inspection Cardiac: Regular rate and rhythm, normal S1, normal S2, I did not appreciated any significant murmurs rubs or gallops, I did not appreciate any significant pedal edema, No calf tenderness, capillary refill is less than 3 seconds Respiratory: Clear to auscultation bilaterally with symmetrical chest rise, I did not appreciate any significant wheezes, rales, rhonchi, no increased work of breathing GI: Normal bowel sounds, soft, nontender in all 4 quadrants, nondistended MSK: No sensory or motor changes, moves all extremities without issue, extremities are warm and well-perfused Skin: [place], clean, dry, intact. Neuro: Alert and oriented x4 Psych: Calm, cooperative, logical thought process Results & Data Results & Data ([facility]) Vital Signs (Past 12 Hours) Vital Signs Temp Pulse Pulse Resp BP Pulse Ox 07/13/20 07:20 36.6 C 69 18 117/74 95 07/12/20 22:00 36.6 C 71 16 129/79 95 07/12/20 21:51 70 18 136/86 99 Laboratory Results 07/13/20 07/13/20 07/12/20 Range/Units 05:18 05:18 17:51 WBC 7.04 (4.8-10.8) K/uL RBC 4.79 (4.2-5.4) M/uL Hgb 14.7 (12.0-16.0) g/dL POC Hgb 14.3 (12.0-16.0) g/dl Hct 44.6 (37-47) % POC Hct 42 (37-47) % MCV 93.1 (80-100) fL MCH 30.7 (25-34) pg MCHC 33.0 (32-36) g/dL RDW Std Deviation 46.4 H (36.4-46.3) fL RDW Coeff of Modesta 13.6 (11.5-14.5) % Plt Count 240 (130-400) K/uL MPV 10.6 H (7.4-10.4) fL Immature Gran % (Auto) 0.1 % Neut % (Auto) 49.1 % Lymph % (Auto) 39.3 % Elliott % (Auto) 7.8 % Eos % (Auto) 3.6 % Baso % (Auto) 0.1 % Neut # (Auto) 3.45 (1.4-6.5) K/uL Lymph # (Auto) 2.77 (1.2-3.4) K/uL Elliott # (Auto) 0.55 (0.11-0.59) K/uL Eos # (Auto) 0.25 (0-0.5) K/uL Baso # (Auto) 0.01 (0-0.2) K/uL Immature Gran # (Auto) 0.01 (0.00-0.02) K/uL PT (9.0-12.0) Seconds INR (0.9-1.1) POC Sodium 141 (135-144) mmol/L Sodium 145 (136-145) mmol/L POC Potassium 4.1 (3.3-5.0) mmol/L Potassium 3.5 (3.5-5.1) mmol/L POC Chloride 104 (101-112) mmol/L Chloride 112 H (98-107) mmol/L Carbon Dioxide 28 (21-32) mmol/L POC Total CO2 28 (24-31) mmol/L Anion Gap 5.0 (3-11) POC Anion Gap 14.0 L (16-25) mmol/L POC BUN 21 H (7-18) mg/dl BUN 11 (7-18) mg/dl Creatinine 1.47 H D (0.6-1.2) mg/dl POC Creatinine 1.1 (0.6-1.3) mg/dl Est Cr Clr Drug Dosing 46.8 ml/min Est GFR ( Amer) 43.0 ml/min Est GFR (Non-Af Amer) 37.1 ml/min BUN/Creatinine Ratio 7.3 L (10-20) Glucose 89 (70-99) mg/dl POC Glucose (other) 96 (70-99) mg/dl Calcium 8.4 L (8.5-10.1) mg/dl POC Ioniz Calcium Charbel 1.20 (1.12-1.32) mmol/l Total Bilirubin 0.5 (0.2-1) mg/dl AST 10 L (15-37) U/L ALT 27 (12-78) U/L Alkaline Phosphatase 60 (45-117) U/L Troponin I (0-0.045) ng/ml Total Protein 6.2 L (6.4-8.2) gm/dl Albumin 3.3 L (3.4-5.0) gm/dl Globulin 2.9 (2.5-4.0) gm/dl Albumin/Globulin Ratio 1.1 (0.9-2) Lipase (73-393) U/L COVID-19 Eval Order SARS-CoV-2 (PCR) (Negative) 07/12/20 07/12/20 07/12/20 Range/Units 17:25 17:25 17:23 WBC (4.8-10.8) K/uL RBC (4.2-5.4) M/uL Hgb (12.0-16.0) g/dL POC Hgb (12.0-16.0) g/dl Hct (37-47) % POC Hct (37-47) % MCV (80-100) fL MCH (25-34) pg MCHC (32-36) g/dL RDW Std Deviation (36.4-46.3) fL RDW Coeff of Modesta (11.5-14.5) % Plt Count (130-400) K/uL MPV (7.4-10.4) fL Immature Gran % (Auto) % Neut % (Auto) % Lymph % (Auto) % Elliott % (Auto) % Eos % (Auto) % Baso % (Auto) % Neut # (Auto) (1.4-6.5) K/uL Lymph # (Auto) (1.2-3.4) K/uL Elliott # (Auto) (0.11-0.59) K/uL Eos # (Auto) (0-0.5) K/uL Baso # (Auto) (0-0.2) K/uL Immature Gran # (Auto) (0.00-0.02) K/uL PT (9.0-12.0) Seconds INR (0.9-1.1) POC Sodium (135-144) mmol/L Sodium 142 (136-145) mmol/L POC Potassium (3.3-5.0) mmol/L Potassium 4.1 (3.5-5.1) mmol/L POC Chloride (101-112) mmol/L Chloride 108 H (98-107) mmol/L Carbon Dioxide 29 (21-32) mmol/L POC Total CO2 (24-31) mmol/L Anion Gap 5.0 (3-11) POC Anion Gap (16-25) mmol/L POC BUN (7-18) mg/dl BUN 17 (7-18) mg/dl Creatinine 0.99 (0.6-1.2) mg/dl POC Creatinine (0.6-1.3) mg/dl Est Cr Clr Drug Dosing 69.4 ml/min Est GFR ( Amer) 69.3 ml/min Est GFR (Non-Af Amer) 59.8 ml/min BUN/Creatinine Ratio 17.1 (10-20) Glucose 94 (70-99) mg/dl POC Glucose (other) (70-99) mg/dl Calcium 8.6 (8.5-10.1) mg/dl POC Ioniz Calcium Charbel (1.12-1.32) mmol/l Total Bilirubin 0.5 (0.2-1) mg/dl AST 14 L (15-37) U/L ALT 32 (12-78) U/L Alkaline Phosphatase 64 (45-117) U/L Troponin I < 0.015 (0-0.045) ng/ml Total Protein 6.7 (6.4-8.2) gm/dl Albumin 3.6 (3.4-5.0) gm/dl Globulin 3.1 (2.5-4.0) gm/dl Albumin/Globulin Ratio 1.2 (0.9-2) Lipase 181 (73-393) U/L COVID-19 Eval Order Covid19 at [facility] SARS-CoV-2 (PCR) NEGATIVE (Negative) 07/12/20 07/12/20 Range/Units 17:23 17:23 WBC 7.04 (4.8-10.8) K/uL RBC 4.85 (4.2-5.4) M/uL Hgb 15.2 (12.0-16.0) g/dL POC Hgb (12.0-16.0) g/dl Hct 45.0 (37-47) % POC Hct (37-47) % MCV 92.8 (80-100) fL MCH 31.3 (25-34) pg MCHC 33.8 (32-36) g/dL RDW Std Deviation 45.9 (36.4-46.3) fL RDW Coeff of Mod[place] 13.6 (11.5-14.5) % Plt Count 243 (130-400) K/uL MPV 10.6 H (7.4-10.4) fL Immature Gran % (Auto) 0.1 % Neut % (Auto) 52.5 % Lymph % (Auto) 31.7 % Elliott % (Auto) 10.7 % Eos % (Auto) 4.7 % Baso % (Auto) 0.3 % Neut # (Auto) 3.70 (1.4-6.5) K/uL Lymph # (Auto) 2.23 (1.2-3.4) K/uL Elliott # (Auto) 0.75 H (0.11-0.59) K/uL Eos # (Auto) 0.33 (0-0.5) K/uL Baso # (Auto) 0.02 (0-0.2) K/uL Immature Gran # (Auto) 0.01 (0.00-0.02) K/uL PT 10.3 (9.0-12.0) Seconds INR 1.0 (0.9-1.1) POC Sodium (135-144) mmol/L Sodium (136-145) mmol/L POC Potassium (3.3-5.0) mmol/L Potassium (3.5-5.1) mmol/L POC Chloride (101-112) mmol/L Chloride (98-107) mmol/L Carbon Dioxide (21-32) mmol/L POC Total CO2 (24-31) mmol/L Anion Gap (3-11) POC Anion Gap (16-25) mmol/L POC BUN (7-18) mg/dl BUN (7-18) mg/dl Creatinine (0.6-1.2) mg/dl POC Creatinine (0.6-1.3) mg/dl Est Cr Clr Drug Dosing ml/min Est GFR ( Amer) ml/min Est GFR (Non-Af Amer) ml/min BUN/Creatinine Ratio (10-20) Glucose (70-99) mg/dl POC Glucose (other) (70-99) mg/dl Calcium (8.5-10.1) mg/dl POC Ioniz Calcium Charbel (1.12-1.32) mmol/l Total Bilirubin (0.2-1) mg/dl AST (15-37) U/L ALT (12-78) U/L Alkaline Phosphatase (45-117) U/L Troponin I (0-0.045) ng/ml Total Protein (6.4-8.2) gm/dl Albumin (3.4-5.0) gm/dl Globulin (2.5-4.0) gm/dl Albumin/Globulin Ratio (0.9-2) Lipase (73-393) U/L COVID-19 Eval Order SARS-CoV-2 (PCR) (Negative) Medications Administered Current Inpatient Medications Hydralazine HCl (Hydralazine Hcl 20 Mg/Ml Vial) 5 mg IV TID PRN PRN Reason: Systolic >160 Stop: 08/11/20 21:59 Cefoxitin Sodium 2,000 mg/ (Dextrose) 60 mls @ 100 mls/hr IV Q6H ONEIL Stop: 07/22/20 20:14 Last Infusion: 07/13/20 04:43 Dose: Infused Documented by: Lactated Ringer's (Lr) 1,000 mls @ 75 mls/hr IV .[id number] ONEIL Stop: 08/11/20 21:59 Last Admin: 07/12/20 22:17 Dose: 75 mls/hr Documented by: Acetaminophen (Ofirmev) 1,000 mg in 100 mls @ 400 mls/hr IV Q8H PRN PRN Reason: pain Stop: 07/15/20 21:59 Morphine Sulfate (Morphine Sulfate 2 Mg/Ml Carp) 2 mg IV Q3H PRN PRN Reason: Pain Stop: 07/26/20 21:59 Ondansetron HCl (Ondansetron Inj 2 Mg/Ml 2 Ml Vial) 4 mg IV Q6H PRN PRN Reason: Nausea And Vomiting Stop: 08/11/20 21:59 Resident Activity Tracking Resident Involvement: Resident Care Provided Care Provided: Adult Hospital Medicine (1) Acute thoracic back pain Back pain laterality: midline Qualified Code(s): M54.6 - Pain in thoracic spine
--- NOTE | 2020-07-13 10:05 | Electrocardiogram Report ---
Test Reason : Blood Pressure : / mmHG Vent. Rate : 067 BPM Atrial Rate : 067 BPM P-R Int : 172 ms QRS Dur : 084 ms QT Int : 412 ms P-R-T Axes : 019 019 057 degrees QTc Int : 435 ms Normal sinus rhythm Normal ECG When compared with ECG of 27-APR-2020 14:26, Nonspecific ST abnormality has resolved Confirmed by Suraj Wolff ([id number]) on 07/13/2020 10:05:12 AM Referred By: REFERRED SELF Confirmed By:Suraj Wolff
[2020-07-13] MEDS: LACTATED RINGER'S 1,000 ML IV SCH (11:24)
[2020-07-13] MEDS ORDERED: fentaNYL citrate 100 MCG/2 ML VIAL ONE (12:00)
[2020-07-13] MEDS ORDERED: MIDAZOLAM HCL 1 MG/ML 2ML VIAL ONE (12:00)
[2020-07-13] MEDS ORDERED: BUPIVACAINE 0.5 % 5 MG/1 ML MPF 30ML VIAL ONE (12:02)
--- NOTE | 2020-07-13 12:25 | Anesthesiology Consultation ---
Date of Service July 13, 2020 Assessment & Plan (1) Encounter for pre-operative examination: Chart Review Chart Review: Acceptable Risk for Surgery History Surgery Operation Date: 07/13/20 11:30 Proposed Procedures p Laparoscopic Cholecystectomy, Possible Open - Nicola Ibanez MD, FACS Height/Weight Height: 5 ft 4 in Weight: 112 kg Allergies Allergy/AdvReac Type Severity Reaction Status Date / Time No Known Allergies Allergy Verified 07/12/20 16:53 Medications Home Medications Medication Instructions Recorded Confirmed Last Taken aspirin 650 mg PO Q6H PRN 07/12/20 07/12/20 07/12/20 ibuprofen 400 mg PO Q6H PRN 07/12/20 07/12/20 07/12/20 Active Medications Generic Name Dose Route Start Last Admin Trade Name Freq PRN Reason Stop Dose Admin Cefoxitin Sodium 2,000 mg/ 60 mls @ 100 mls/hr 07/12/20 20:15 07/13/20 11:24 Dextrose IV 07/22/20 20:14 Infused Q6H ONEIL Infusion Lactated Ringer's 1,000 mls @ 75 mls/hr 07/12/20 22:00 07/13/20 12:05 Lr IV 08/11/20 21:59 0 mls/hr .[id number] ONEIL Infusion NPO Date Last Intake of Fluids: 07/12/20 Time Last Intake of Fluids: 16:00 Date Last Intake of Solids: 07/12/20 Time Last Intake of Solids: 14:00 Past Medical History Medical History (Updated 07/13/20 @ 12:24 by William Esparza MD) Hyperlipidemia no meds Obesity Stress incontinence Vaginal polyp Past Family History Family History Father Lung cancer Lung disease Sister Ovarian cancer dx in 50's Other No family history of adverse response to anesthesia Denies family history of Breast cancer Colorectal cancer Uterine cancer Past Surgical History Surgical History H/O tubal ligation History of appendectomy History of colonoscopy Hx of section x2 S/P wisdom tooth extraction HX Social History Smoking Status: Never smoker Hx Alcohol Use: Yes Alcohol type: beer and wine alcohol intake frequency: holidays/special occasions only Hx Substance Use: No substance use type: does not use Physical Exam Vital Signs Last Vital Signs Temp 36.6 C 07/13/20 07:20 Pulse 69 07/13/20 07:20 Resp 18 07/13/20 07:20 BP 117/74 07/13/20 07:20 Pulse Ox 95 07/13/20 07:20 Testing Laboratory Results 07/13/20 05:18 07/13/20 05:18 PT 10.3 Seconds (9.0-12.0) 07/12/20 17:23 INR 1.0 (0.9-1.1) 07/12/20 17:23 Electrocardiogram Date: 07/12/20 Findings: + NSR @ (77)
[2020-07-13] MEDS ORDERED: ATROPINE SULFATE 0.1 MG/ML 10ML SYR IV PRN (12:28)
[2020-07-13] MEDS ORDERED: fentaNYL citrate 100 MCG/2 ML VIAL IV PRN (12:28)
[2020-07-13] MEDS ORDERED: PROMETHAZINE HCL 6.25 MG in SODIUM CHLORIDE 0.9% 50 ML IV PRN (12:28)
[2020-07-13] MEDS ORDERED: ONDANSETRON INJ 2 MG/ML 2 ML VIAL IV PRN ×2 (12:28→14:59)
[2020-07-13] MEDS ORDERED: ACETAMINOPHEN 1,000 MG/100 ML VIAL IV ONE (13:44)
--- NOTE | 2020-07-13 13:44 | Post Operative Brief Note ---
PG Immediate Post Op with CF Date of Surgery July 13, 2020 Pre & Post Diagnosis Operation Date: 07/13/20 11:30 Pre-Op Diagnosis: Biliary Colic Post-Op Diagnosis: Biliary Colic, acute cholecystitis I identified the patient and participated in the time-out.: Yes Procedure Operation Date: 07/13/20 11:30 Actual Procedures p Laparoscopic Cholecystectomy(Not Applicable) - Nicola Ibanez MD, FACS Surgeon Nicola Ibanez MD, FACS Natural Resources Extension Educator Russell Carter Estimated Blood Loss 10 Findings Consistent with Post-Op Diagnosis Specimens Specimen Description: Permanent A. Gallbladder and Contents
[2020-07-13] MEDS ORDERED: PROPOFOL IV EMULSION 10 MG/ML 20 ML VIAL IV ONE (14:03)
[2020-07-13] MEDS ORDERED: METOCLOPRAMIDE HCL INJ 5 MG/ML 2 ML VIAL ONE (14:03)
[2020-07-13] MEDS ORDERED: ROCURONIUM BROMIDE 10 MG/ML 5 ML VIAL IV ONE (14:03)
[2020-07-13] MEDS ORDERED: LIDOCAINE 2% 2 ML VIAL/AMP(20MG/ML) INFIL ONE (14:03)
[2020-07-13] MEDS ORDERED: NEOSTIGMINE METHYLSULFATE 1 MG/ML 10ML VIAL ONE (14:03)
[2020-07-13] MEDS ORDERED: GLYCOPYRROLATE 0.2 MG/ML VIAL ONE (14:03)
[2020-07-13] MEDS ORDERED: ONDANSETRON INJ 2 MG/ML 2 ML VIAL ONE (14:03)
--- NOTE | 2020-07-13 14:12 | Operative Report (OR) ---
DATE OF OPERATION: 07/13/2020 NAME OF OPERATION: Laparoscopic cholecystectomy. PREOPERATIVE DIAGNOSIS: Biliary colic. POSTOPERATIVE DIAGNOSES: Biliary colic with acute cholecystitis. STAFF SURGEON: Nicola Ibanez MD. CERAMIC CAPACITOR PROCESSOR: Marisela Carter. ANESTHESIA: General. DESCRIPTION OF PROCEDURE: The patient was brought in the operating room and placed on the operating table in supine position. Her abdomen was prepped and draped in usual fashion. Pneumatic stockings, orogastric tube were placed. 0.5% plain Marcaine was used to anesthetize all incisions. Incision was made just above the umbilicus, carrying dissection down to the fascia, placing a Veress needle producing pneumoperitoneum. An 11 mm port placed at this level and then under visualization, three 5 mm ports placed, 1 cephalad and 2 laterally. Patient had significant intra-abdominal adipose tissue. Her gallbladder was retracted. There was edema in the wall consistent with acute cholecystitis. My assistant branch manager helped with prepping, draping, removal of the gallbladder and closure of the wounds. Gallbladder was aspirated of bile, which was sludge-like. Dissection was carried out the bryan hepatis, identifying the cystic duct, which included the cystic artery. These were clipped and transected. There were 2 Giovanni structures, which were also clipped. The gallbladder was then dissected away from the liver bed in the usual fashion. After appropriate hemostasis and irrigation, the gallbladder was placed in an Endobag. The Endobag was removed through the umbilical site. I did have to enlarge with the fascial defect some to remove the gallbladder. Fascia at the umbilicus closed using 0 Vicryl suture. Skin reapproximated using 4-0 nylon suture. The patient transferred to recovery room in stable condition. I attest to the content of the Intraoperative Record and any orders documented therein. Any exception s are noted below.
--- NOTE | 2020-07-13 14:29 | Anesthesiology Progress Note ---
Date of Service July 13, 2020 Anesthesia Post Procedure Vital Signs Vital Signs: Temp Pulse Pulse Pulse Resp BP BP 07/13/20 14:20 36.5 C 61 16 136/76 07/13/20 14:10 56 L 16 130/79 07/13/20 14:00 60 16 128/78 07/13/20 13:54 36.5 C 60 16 124/76 07/13/20 07:20 36.6 C 69 18 117/74 07/12/20 22:00 36.6 C 71 16 129/79 07/12/20 21:51 70 18 136/86 07/12/20 17:34 07/12/20 16:45 36.6 C 70 18 174/100 H Pulse Ox 07/13/20 14:20 96 07/13/20 14:10 99 07/13/20 14:00 100 07/13/20 13:54 100 07/13/20 07:20 95 07/12/20 22:00 95 07/12/20 21:51 99 07/12/20 17:34 99 07/12/20 16:45 99 Transfer of Care Handoff Completed per policy Notes Mental Status: alert / awake / arousable Patient Amnestic to Procedure: Yes Nausea / Vomiting: adequately controlled Pain: adequately controlled Airway Patency, RR, SpO2: stable & adequate BP & HR: stable & adequate Hydration State: stable & adequate Anesthetic Complications: no major complications apparent
[2020-07-13] MEDS ORDERED: PROMETHAZINE HCL 12.5 MG in SODIUM CHLORIDE 0.9% 50 ML IV PRN (14:59)
[2020-07-13] MEDS ORDERED: ACETAMINOPHEN 325 MG TAB PO PRN (14:59)
[2020-07-13] MEDS ORDERED: HYDROCODONE/ACETAMOPHEN 5/325MG TAB PO PRN ×2 (14:59)
[2020-07-13] MEDS ORDERED: PROMETHAZINE HCL 25 MG in SODIUM CHLORIDE 0.9% 50 ML IV PRN (14:59)
[2020-07-13] MEDS ORDERED: IBUPROFEN 600 MG TAB PO PRN (14:59)
--- NOTE | 2020-07-13 22:31 | Billing Data ---
Date of Service July 13, 2020 Coding Level of Care Code 30837 Inpt Consult Level 3
[2020-07-14] MEDS: LACTATED RINGER'S 1,000 ML IV SCH ×2 (03:29→05:15)
[2020-07-14] MEDS: cefOXitin 2,000 MG in DEXTROSE 5% 50 ML IV SCH (05:15)
--- NOTE | 2020-07-14 08:01 | Discharge Summary (DS) ---
PRINCIPAL DIAGNOSIS: Acute cholecystitis. PROCEDURES: The patient underwent laparoscopic cholecystectomy. HISTORY OF PRESENT ILLNESS: The patient is a 65-year-old female presenting to the Emergency Room with acute abdominal pain. Symptoms and findings were consistent with biliary colic. On 07/13/2020, she was taken to the operating room where she underwent laparoscopic cholecystectomy, which she tolerated very well. She now felt stable for discharge home, to be followed in the surgical clinic within 1 week.
[2020-07-14] MEDS ORDERED: HEPARIN SOD 5,000 UNIT/0.5 ML VIAL SQ SCH (09:00)
== END 2020-07-14 08:50 | disposition home or self-care (01) ==
LOC: 3E 16:33 → ED 16:33 → 3E 21:54